=== PATIENT | female | born 1960 | race Caucasian/White ===

== ENCOUNTER 2018-11-16 07:40 | Day surgery (SDC) | payer OTHER ==
[~2018-11-16] VITALS: Ht 167.6 cm; Wt 105.2 kg
[~2018-11-16 07:40] MED LIST: BIOT10005 PO; CALC600T12 PO; GING500C PO; LACT1CAP78 PO; LORA-705 PO; MAGN250T2 PO; MULT400C3 PO; MV-M1TAB20 PO; OMEG1CAP6 PO; SODIUM CHLORIDE 0.9% 1000ML 1,000 ML IV ONE; VIT B12 PO; VIT C PO; VIT E PO; ZINC50TA64 PO
[2018-11-16 08:49] VITALS: BP 140/81
[2018-11-16 09:40] VITALS: BP 101/72
[2018-11-16 09:45] VITALS: BP 106/70
[2018-11-16 09:50] VITALS: BP 110/68
[2018-11-16 09:55] VITALS: BP 102/68
[2018-11-16 10:00] VITALS: BP 108/68
== END 2018-11-16 10:05 | disposition home or self-care (01) ==
LOC: ENDO 07:40 → DAH 07:40 → ENDO 10:05
PROVIDERS: ATTEND Internal Medicine
DX: Z12.11 Encounter for screening for malignant neoplasm of colon (principal); Z68.37 Body mass index [BMI] 37.0-37.9, adult; Z79.899 Other long term (current) drug therapy; K57.30 Diverticulosis of large intestine without perforation or abscess without bleeding; K64.0 First degree hemorrhoids; D12.2 Benign neoplasm of ascending colon; D12.3 Benign neoplasm of transverse colon; Z98.890 Other specified postprocedural states; Z88.8 Allergy status to other drugs, medicaments and biological substances
CPT/HCPCS: 45380; 45385; A4606; J7030